=== PATIENT | male | born 1970 | race Caucasian/White ===

== ENCOUNTER 2017-02-25 21:49 | Emergency (ER) | payer BC ==
[2017-02-25 21:56] VITALS: BP 145/99; PULSE 89; TEMP 99.1; BMI 35.7
--- NOTE | 2017-02-25 21:58 | PDOC ---
History of Present Illness - General Chief Complaint: Headache Stated Complaint: HEADACHE Time Seen by Provider: 02/25/17 21:53 - History of Present Illness Initial Comments: This 47-year-old man with a history of hypertension that is currently not being treated presents with a one-day history of red area in his eye and right-sided headache. Patient states that the headache is mild, not pounding and not associated with nausea or visual changes. He has no history of migraine or severe headaches and states that he took 1 dose ibuprofen this morning but no other medications since then. He states that he gets periodic headaches similar to this episode and is not particularly worried about this headache. He states that he came to the ER this evening because he noted red area in his eye and he is worried that it is conjunctivitis. Patient states that he is mildly ALLERGIC to cat dander and he rubbed his eye yesterday after petting his cat. Although he had no symptoms last night, he is noted mild bilateral eye itching today. No other nasal congestion/runny nose or other ALLERGIC symptoms. He has not had any crusting of his eyelashes/ change in vision/eye pain. He has a history of a subcutaneous conjunctival hemorrhage for which he had been seen by Stephany Chamberlain/Bee a few years ago Patient states that he used to be treated with hypertension ( lisinopril) but medication was stopped last year when he was noted to be normotensive by his PMD. He states that he has not seen has doctor in several months and he has gained approximately 15 pounds of weight since the last time he has visited his doctor. He denies chest pain/shortness of breath Past History - Past Medical History Allergies/Adverse Reactions: Allergies Allergy/AdvReac Type Severity Reaction Status Date / Time No Known Allergies Allergy Verified 02/09/16 16:46 Home Medications: Ambulatory Orders Ketotifen Fumarate [Alaway] 1 drop OP BID #1 bottle 02/25/17 Naproxen Sodium [Aleve] 220 mg PO ONCE 02/25/17 - Immunization History Immunization Up to Date: Yes - Psycho/Social/Smoking Cessation Hx Anxiety: No Suicidal Ideation: No Smoking History: Never smoked Have you smoked in the past 12 months: No Hx Alcohol Use: No Drug/Substance Use Hx: No Substance Use Type: None Review of Systems - Review of Systems Able to Perform ROS?: Yes Comments:: 12 point review of systems is negative except for what is noted in the history of present illness *Physical Exam - Vital Signs Last Vital Signs Temp Pulse Resp BP Pulse Ox 99.1 F 89 16 145/99 95 02/25/17 21:54 02/25/17 21:54 02/25/17 21:54 02/25/17 21:54 02/25/17 21:54 - Physical Exam Comments: GENERAL: Adult male, alert and oriented 3, in no acute distress HEAD: Normal with no signs of trauma. EYES: PERRLA 2 mm, EOMI, sclera anicteric, Small area of erythematous, moderately dilated conjunctival vessels just medial to nasal aspect of right cornea. Remainder of bilateral conjunctiva is minimally erythematous No crusting of eyelashes/purulent discharge noted ENT: Ears normal, nares patent, oropharynx clear without exudates. Dry mucous membranes. NECK: Normal range of motion, supple without lymphadenopathy, JVD, or masses. LUNGS: Breath sounds equal, clear to auscultation bilaterally. No wheezes, and no crackles. HEART:Regular rate and rhythm, normal S1 and S2 without murmur, rub or gallop. ABDOMEN:.normal bowel sounds No guarding,tenderness or rebound.No masses No distention. EXTREMITIES: Normal range of motion, no edema. No clubbing or cyanosis. No erythema, or tenderness. NEUROLOGICAL: Cranial nerves II through XII grossly intact. Normal speech. Normal gait. No focal neurologic deficits MUSCULOSKELETAL: Back non-tender to palpation, no CVA tenderness SKIN: Warm, Dry, normal turgor, no rashes or lesions noted. One drop of 0.5% tetracaine hydrochloride ophthalmic solution placed in the right eye. Fluorescein staining of the cornea revealed no evidence of abrasion or foreign body Progress Note - Progress Note Progress Note: This 47-year-old man with a history of hypertension, currently not being treated presents with localized erythema of the right conjunctiva. Patient also has a right-sided headache but states that this is mild and similar to previous tension headaches. He has no visual changes or localized eye pain. He has mild itching in both eyes. Exam reveals no evidence of any neurologic deficit; his eye exam shows localized area of erythema consistent with either episcleritis or ALLERGIC response of his conjunctiva. Since the patient has mild itching and exposed his eyes to cat dander last night , he will be advised to use Alaway antihistamine drops in case he has mild ALLERGIC conjunctivitis. There is no evidence of acute viral or bacterial conjunctivitis at this point. 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 He was also strongly advised to follow-up with his general doctor for evaluation, especially reevaluation of his blood pressure since it is moderately elevated now. In light of his recent weight gain, he may need his hypertension to be treated with medication again. The patient should return to the emergency room if he has persistent severe headache, nausea/vomiting, visual changes; should also return to the emergency room if he notices crusting of his eyelids or purulent drainage. *DC/Admit/Observation/Transfer Diagnosis at time of Disposition: Episcleritis of right eye - Discharge Dispostion Disposition: HOME Condition at time of disposition: Stable - Prescriptions Prescriptions: Ketotifen Fumarate [Alaway] 1 drop OP BID #1 bottle - Referrals Referrals: [facility] [Primary Care Provider] - Giovany Chamberlain MD [Staff Physician] - 3 days - Patient Instructions Printed Discharge Instructions: DI for Red Eye Additional Instructions: alaway eye drops: 1 drop in each eye twice a day until seen by eye doctor followup by eye doctor(Dr Chamberlain/Dr Bee) within 3 days followup with your general doctor within 1 week return to ER if you have worsening headache/crusting of eyelids/change in vision
[2017-02-25] MEDS ORDERED: FLUORESCEIN NA 1 EA STRIP ONE (22:08)
[2017-02-25] MEDS ORDERED: TETRACAINE 0.5% OPHTH SOLN 2 ML BOTTLE ONE (22:09)
[2017-02-25] MEDS ORDERED: IBUPROFEN 600 MG TABLET (FP) PO ONE ×2 (22:31→22:32)
== END 2017-02-25 22:45 | disposition home or self-care (01) ==
LOC: FER 21:49
DX: H15.101 Unspecified episcleritis, right eye (principal); I10 Essential (primary) hypertension
CPT/HCPCS: 99281-25

== ENCOUNTER 2020-11-06 10:24 | Emergency (ER) | payer BC ==
[2020-11-06 10:31] VITALS: PULSE 66; TEMP 98.8; BMI 35.4
[2020-11-06] MEDS ORDERED: FAMOTIDINE 20 MG/50 ML IVPB 20 MG/50 ML MG IVPB ONE ×2 (11:04→11:06)
[2020-11-06] MEDS ORDERED: MAG HYDROX/AL HYDROX/SIMETH -MYLANTA- ORAL SUSPENSION PO ONE (11:04)
[2020-11-06] MEDS ORDERED: KETOROLAC TROMETHAMINE 30 MG/1 ML VIAL IVPUSH ONE (11:04)
[2020-11-06] MEDS ORDERED: MAG HYDROX/AL HYDROX/SIMETH 30 ML UNIT-DOSE CUP ONE (11:06)
[2020-11-06] MEDS ORDERED: KETOROLAC TROMETHAMINE 30 MG/1 ML VIAL ONE (11:06)
[2020-11-06] MEDS ORDERED: SODIUM CHLORIDE 0.9% 500 ML INFUS.BAG IV ONE (11:14)
[2020-11-06 11:46] LABS: ALBUMIN 4.1 g/dl (3.4-5.0); BILIRUBIN,TOTAL 0.7 mg/dl (0.2-1); CALCIUM 8.6 mg/dl (8.5-10); CREATININE 1.1 mg/dl (0.55-1.3); TOT PROT 6.5 g/dl (6.4-8.2)
[2020-11-06 11:51] LABS: HEMOGLOBIN 14.5 GM/dl (11.7-16.9)
[2020-11-06 11:53] LABS: RBC 4.92 M/mm3 (4.00-5.60)
[2020-11-06 11:55] LABS: HEMATOCRIT 43.1 % (35.4-49); MCH 29.5 pg (25.7-33.7); MCHC 33.7 g/dl (32.0-35.9); MEAN CELL VOLUME 87.6 fl (80-96); PLATELET COUNT 199 K/MM3 (134-434); RDW 12.1 % (11.9-15.9); WHITE BLOOD COUNT 12.4 K/mm3 (4.0-10.8)
[2020-11-06] MEDS ORDERED: SULFAMETHOXAZOLE/TRIMETHOPRIM 800MG/160MG D.S. TABLET ONE (11:58)
[2020-11-06] MEDS ORDERED: DIPHTH,PERTUSS(ACELL),TET 0.5 ML DISP.SYRIN IM ONE (11:58)
[2020-11-06 12:20] LABS: PLATELET ESTIMATE ADEQUATE
[2020-11-06 13:33] VITALS: BP 143/98
== END 2020-11-06 13:10 | disposition home or self-care (01) ==
LOC: FER 10:24
PROC: 3E033NZ Introduction of Analgesics, Hypnotics, Sedatives into Peripheral Vein, Percutaneous Approach (ICD-10-PCS; principal; 2020-11-06)
PROC: 3E0333Z Introduction of Anti-inflammatory into Peripheral Vein, Percutaneous Approach (ICD-10-PCS; 2020-11-06)
DX: N20.0 Calculus of kidney (principal)
CPT/HCPCS: 36415; 74176-TC; 80053; 81003; 81015; 83690; 84484; 85025; 87086; 93005; 99285-25

== ENCOUNTER 2020-12-05 14:44 | Emergency (ER) | payer BC | END 2020-12-05 20:07 | disposition home or self-care (01) | LOC: JVIRT 14:44 | DX: Z11.52 Encounter for screening for COVID-19 (principal) | CPT/HCPCS: C9803; G2012-GT; U0003 ==

== ENCOUNTER 2021-01-21 15:53 | Emergency (ER) | payer BC | END 2021-01-21 16:46 | disposition home or self-care (01) | LOC: JVIRT 15:53 | DX: Z20.822 Contact with and (suspected) exposure to COVID-19 (principal) | CPT/HCPCS: C9803; G2251-GT; U0003 ==